=== PATIENT | female | born 1995 | race Caucasian/White ===

== ENCOUNTER 2022-01-10 11:23 | Emergency (ER) | payer OTHER ==
--- NOTE | 2022-01-10 11:29 | ERPHSYRPT ---
- History of Present Illness Time Seen by Provider: 01/10/22 11:29 Source: patient Exam Limitations: no limitations Physician History: This is a right-handed 26-year-old white female who fell yesterday early evening while stepping on her porch steps. She fell onto her right shoulder. Patient was using Tylenol to help with pain control. Today, the pain is not better and she is having trouble moving her right shoulder. She did hit her chin. She is not concerned about her chin or any other area of her body. She did not lose consciousness. She does not have neck or head pain. Occurred: yesterday Quality: constant, aching Severity of Pain-Max: moderate Severity of Pain-Current: mild (To moderate) Extremities Pain Location: shoulder: right Modifying Factors: Improves With: movement Associated Symptoms: none Allergies/Adverse Reactions: ibuprofen [From Motrin] Allergy (Intermediate, Verified 01/10/22 11:47) Hives Home Medications: Bupropion HCl [Wellbutrin Xl] 300 mg PO DAILY 01/10/22 [History] Travel Risk - International Travel Have you traveled outside of the country in past 3 weeks: No - Coronavirus Screening Are you exhibiting any of the following symptoms?: No Close contact with a COVID-19 positive Pt in past 14-21 Days: No - Review of Systems Constitutional: No Symptoms Eyes: No Symptoms Ears, Nose, & Throat: No Symptoms Respiratory: No Symptoms Cardiac: No Symptoms Abdominal/Gastrointestinal: No Symptoms Genitourinary Symptoms: No Symptoms Musculoskeletal: Fall, Injury, Joint Pain (Right shoulder) Neurological: No Symptoms Psychological: No Symptoms Endocrine: No Symptoms Hematologic/Lymphatic: No Symptoms Immunological/Allergic: No Symptoms All Other Systems: Reviewed and Negative - Past Medical History Pertinent Past Medical History: Yes - Past Surgical History Past Surgical History: Yes - Nursing Vital Signs Nursing Vital Signs: Initial Vital Signs Temperature 97.7 F 01/10/22 11:42 Pulse Rate 78 01/10/22 11:42 Respiratory Rate 20 01/10/22 11:42 Blood Pressure 119/55 01/10/22 11:42 O2 Sat by Pulse Oximetry 99 01/10/22 11:42 Pain Scale Pain Intensity 4 - Physical Exam General Appearance: no apparent distress, alert, anxiety, obese Neck Exam: normal inspection, non-tender, supple, full range of motion Cardiovascular/Respiratory Exam: chest non-tender, no respiratory distress Abdominal Exam: non-tender Back Exam: normal inspection, normal range of motion, No CVA tenderness, No vertebral tenderness Shoulder Exam: normal inspection, limited ROM, soft tissue tenderness, No deformity Elbow/Forearm Exam: normal inspection, non-tender, no evidence of injury, normal ROM Wrist Exam: normal inspection, non-tender, no evidence of injury, normal ROM Hand Exam: normal inspection, non-tender, no evidence of injury, normal ROM Neuro/Tendon Exam: normal sensation, normal motor functions, normal tendon functions, responds to pain Mental Status Exam: alert, oriented x 3, cooperative Skin Exam: normal color, warm, dry SpO2 Interpretation: normal O2 Delivery: Room Air - Course Nursing assessment & vital signs reviewed: Yes Ordered Tests: Active Orders 24 hr Category Date Time Status SHOULDER Stat Exams 01/10/22 11:47 Completed - Progress Progress: pain not gone completely Progress Note: 01/10/22 11:57 Patient drove herself to the hospital emergency department 01/10/22 12:38 X-ray right shoulder shows no acute fracture or dislocation. Counseled pt/family regarding: diagnosis, need for follow-up, rad results - Departure Departure Disposition: Home Clinical Impression: Contusion of right shoulder Condition: Stable Critical Care Time: No Additional Instructions: Ice pack to area 3 times a day for the next 48 hours. Tylenol 650 mg orally every 6 hours as needed for pain control. Follow-up with the walk-in [facility] orthopedic clinic if your pain persist beyond the next 48 hours. Wear the sling for comfort. Prescriptions: Cyclobenzaprine HCl 10 mg [Cyclobenzaprine 10 MG] 10 mg PO TID #10 tablet
--- NOTE | 2022-01-10 12:21 | XRAY ---
Indication: Pain following fall. Comparison: None 3 view right shoulder demonstrates mild dextroscoliosis centered at T7. No other bony, articular, or soft tissue abnormalities.
[2022-01-10 12:34] VITALS: BP 112/50; PULSE 80; O2SAT 98
== END 2022-01-10 12:48 | disposition home or self-care (01) ==
LOC: ED 11:23
DX: S40.011A Contusion of right shoulder, initial encounter (principal); W10.9XXA Fall (on) (from) unspecified stairs and steps, initial encounter; Y92.007 Garden or yard of unspecified non-institutional (private) residence as the place of occurrence of the external cause; Z79.899 Other long term (current) drug therapy
CPT/HCPCS: 73030; 99283